=== PATIENT | female | born 1960 | race Caucasian/White ===

== ENCOUNTER → 2018-10-13 | Outpatient (CLI) | payer OTHER ==
--- NOTE | 2018-10-13 17:50 | Diagnostic Imaging Report ---
INDICATION: Routine screening. Comparison is made with prior mammograms from 10/07/2017 and 10/01/2016. 2-D and 3-D bilateral screening mammography was performed with computer-aided detection (CAD) system. FINDINGS: Both breasts are heterogeneously dense, limiting the sensitivity of mammography. No spiculated mass or malignant-appearing microcalcifications are seen. The axillae are unremarkable. IMPRESSION: No mammographic features suspicious for malignancy are identified. ACR BI-RADS Category 1: Negative. Result letter will be mailed to the patient. Note: At least 10% of breast cancer is not imaged by mammography. Dictated by: Dictated on workstation # [id number]
== END ==
LOC: RAD 15:17
PROVIDERS: ATTEND Internal Medicine
DX: Z12.31 Encounter for screening mammogram for malignant neoplasm of breast (principal)
CPT/HCPCS: 77067

== ENCOUNTER → 2019-10-12 | Outpatient (CLI) | payer OTHER ==
--- NOTE | 2019-10-12 17:49 | Diagnostic Imaging Report ---
EXAM: CERVICAL SPINE 3 VIEWS OR LESS INDICATION: Neck pain. COMPARISON: None. FINDINGS: Normal alignment. Vertebral body heights are preserved. Mild degenerative endplate changes are greatest at C4-C5. Normal prevertebral soft tissues. IMPRESSION: Mild spondylotic changes. No acute radiographic findings. Dictated by: Dictated on workstation # [id number]
== END ==
LOC: RAD 17:09
PROVIDERS: ATTEND Internal Medicine
DX: M47.812 Spondylosis without myelopathy or radiculopathy, cervical region (principal)
CPT/HCPCS: 72040

== ENCOUNTER → 2019-10-16 | Outpatient (CLI) | payer OTHER ==
--- NOTE | 2019-10-16 10:40 | Diagnostic Imaging Report ---
INDICATION: Routine screening. Comparison is made with prior mammogram from 10/13/2018 and 10/07/2017. 2-D and 3-D bilateral screening mammography was performed with CAD. Both breasts are heterogeneously dense, limiting the sensitivity of mammography. No mass or malignant-appearing microcalcifications are seen. There are benign calcifications. Axillae are unremarkable. IMPRESSION: BI-RADS Category 2 No mammographic features suspicious for malignancy are identified. ACR BI-RADS Category 2: Benign findings. Result letter will be mailed to the patient. Note: At least 10% of breast cancer is not imaged by mammography. Dictated by: Dictated on workstation # [id number]
== END ==
LOC: RAD 09:33
PROVIDERS: ATTEND Internal Medicine
DX: Z12.31 Encounter for screening mammogram for malignant neoplasm of breast (principal)
CPT/HCPCS: 77067

== ENCOUNTER → 2020-10-26 | Outpatient (CLI) | payer OTHER ==
--- NOTE | 2020-10-26 11:16 | Diagnostic Imaging Report ---
Indication: Screening. The current study was also evaluated with a Computer Aided Detection (CAD) system. 3-D Tomographic imaging was also performed. Comparison made with prior examination from 10/16/2019, 10/13/2018, 10/07/2017. FINDINGS: The thyroid tissue is heterogeneously dense bilaterally. There are benign type calcifications. There is no dominant mass, spiculated lesions or suspicious calcification identified. The skin, nipples and axilla are unremarkable. IMPRESSION: Category 2 benign ACR BI-RADS Category 2: Benign findings. Result letter will be mailed to the patient. Note: At least 10% of breast cancer is not imaged by mammography. Dictated by: Dictated on workstation # [id number]
== END ==
LOC: RAD 09:45
PROVIDERS: ATTEND Internal Medicine
DX: Z12.31 Encounter for screening mammogram for malignant neoplasm of breast (principal)
CPT/HCPCS: 77063; 77067

== ENCOUNTER → 2021-11-03 | Outpatient (CLI) | payer OTHER ==
--- NOTE | 2021-11-03 12:07 | Diagnostic Imaging Report ---
INDICATION: Routine screening. COMPARISON is made with prior mammograms from 10/26/2020 and 10/16/2019. 2-D and 3-D bilateral screening mammography was performed with CAD. Both breasts are heterogeneously dense, limiting the sensitivity of mammography. No mass or malignant-appearing microcalcifications are seen. Axillae are unremarkable. IMPRESSION: BI-RADS Category 1 No mammographic features suspicious for malignancy are identified. ACR BI-RADS Category 1: Negative. Result letter will be mailed to the patient. Note: At least 10% of breast cancer is not imaged by mammography. Dictated by: Dictated on workstation # [id number]
== END ==
LOC: RAD 11:30
PROVIDERS: ATTEND Internal Medicine
DX: Z12.31 Encounter for screening mammogram for malignant neoplasm of breast (principal)
CPT/HCPCS: 77063; 77067

== ENCOUNTER → 2022-11-09 | Outpatient (CLI) | payer OTHER ==
--- NOTE | 2022-11-09 20:44 | Diagnostic Imaging Report ---
INDICATION: Routine screening. COMPARISON: Prior mammograms from 11/03/2021 and 10/26/2020. EXAMINATION: 2D and 3D bilateral screening mammography was performed with CAD. The current study was also evaluated with a Computer Aided Detection (CAD) system. FINDINGS: Both breasts are heterogeneously dense, limiting the sensitivity of mammography. No mass or malignant-appearing microcalcifications are seen. Axillae are unremarkable. IMPRESSION: No mammographic features suspicious for malignancy are identified. ACR BI-RADS Category 1: Negative. Result letter will be mailed to the patient. Note: At least 10% of breast cancer is not imaged by mammography. Dictated by: Dictated on workstation # [id number]
== END ==
LOC: RAD 14:18
PROVIDERS: ATTEND Internal Medicine
DX: Z12.31 Encounter for screening mammogram for malignant neoplasm of breast (principal)
CPT/HCPCS: 77063; 77067

== ENCOUNTER 2023-07-31 06:59 | Outpatient (CLI) | payer OTHER ==
[~2023-07-31] VITALS: Ht 167.6 cm; Wt 75.3 kg
[2023-07-31] MEDS ORDERED: OMEG100032 PO (15:22)
[2023-07-31] MEDS ORDERED: LORA10CA PO (15:29)
[2023-07-31] MEDS ORDERED: MULT-974 PO (15:29)
[2023-07-31] MEDS ORDERED: FLUT9.9S NS (15:29)
== END 2023-07-31 15:33 | disposition home or self-care (01) ==
LOC: PREOP 06:59
PROVIDERS: ATTEND Internal Medicine
DX: Z01.818 Encounter for other preprocedural examination (principal)

== ENCOUNTER 2023-08-09 08:22 | Day surgery (SDC) | payer OTHER ==
--- NOTE | 2023-07-31 09:01 | HISTORY AND PHYSICAL ---
HISTORY OF PRESENT ILLNESS: The patient is a 63-year-old white female referred for screening colonoscopy by Dr. Timmons. She does report family history for colon cancer, her sister diagnosed in her 50s and her maternal grandmother with colon cancer, she is not sure of her grandmother's age at the time of diagnosis. Her last colonoscopy was over 5 years ago and she does not recall having any polyps or any abnormalities. PAST MEDICAL HISTORY: Noncontributory. She takes fish oil for primary prevention issues and is on no medication. No prescription medication. PAST SURGICAL HISTORY: Significant for a section and two shoulder surgeries, which did not involve the joint replacement. 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 REVIEW OF SYSTEMS: CONSTITUTIONAL: Denies night sweats, chills, fever or change in weight. GASTROINTESTINAL: Denies bright red blood per rectum, melena. Does report some stable constipation without rectal pain. PULMONARY: Denies cough, wheezing or shortness of breath. CARDIOVASCULAR: Denies chest discomfort, orthopnea, PND, pedal edema or syncope. PHYSICAL EXAMINATION: GENERAL: Reveals a pleasant white female, appears to be in no acute distress. VITAL SIGNS: Weight 165 pounds, blood pressure 130/94, reporting a white coat component. CHEST: Clear. CARDIOVASCULAR: Reveals regular rate and rhythm without murmur, S3, or S4. ABDOMEN: Soft, supple without mass, organomegaly, or tenderness. EXTREMITIES: Revealed no cyanosis, clubbing or edema. ASSESSMENT AND PLAN: The patient is being set up for screening colonoscopy on 08/09/2023. Prep instructions were given and questions were answered. She is deemed to be of higher than average risk, as her sister was diagnosed with colon cancer in her 50s and has a maternal grandmother with colon cancer as well, unknown age of diagnosis. I thank you for referral of this pleasant lady. Job ID: [id number] DocumentID: [id number] Dictated Date: 07/29/2023 17:13:21 Messenger Floorperson Date: 07/29/2023 17:38:00 Dictated By: PRADIP FRANKEL MD
[~2023-08-09] VITALS: Ht 167.6 cm; Wt 75.3 kg
[~2023-08-09 08:22] MED LIST: FLUT9.9S NS; LORA10CA PO; MULT-974 PO; OMEG100032 PO
[2023-08-09] MEDS ORDERED: LACTATED RINGERS 1,000 ML 1,000 ML IV STA (08:33)
[2023-08-09 08:54] VITALS: BP 134/72
--- NOTE | 2023-08-09 09:01 | Pre-Op Note & Conscious Sedat ---
Pre-Operative Progress Note Date H&P Reviewed: Aug 09, 2023 Time H&P Reviewed: 09:00 History & Physical: H&P Reviewed, Patient Examed, No changes noted Pre-Op Diagnosis: screening Moderate Sedation PreProcedure ASA Score 1 Airway Lungs Heart ASA score ASA 1: a normal healthy patient ASA 2: a patient with a mild systemic disease (mid diabetes, controlled hypertension, obesity ASA 3: a patient with a severe systemic disease that limits activity (angina, COPD, prior Myocardial infarction) ASA 4: a patient with an incapacitating disease that is a constant threat to life (CHF, renal failure) ASA 5: a moribund patient not expected to survive 24 hrs. (ruptured aneurysm) ASA 6: a declared brain- patient whose organs are being harvested. For emergent operations, add the letter E after the classification Mallampati Classification Grade 1 Sedation Plan Analgesia, Amnesia, Plan communicated to team members, Discussed options with patient/fam, Discussed risks with patient/fam The patient is an appropriate candidate to undergo the planned procedure, sedation, and anesthesia. The patient immediately re-assessed prior to indication. PRADIP FRANKEL MD Aug 09, 2023 09:01
[2023-08-09 10:30] VITALS: BP 105/55
--- NOTE | 2023-08-09 10:30 | Anesthesia-General Post-Op ---
MAC Patient Condition Mental Status/LOC: Same as Preop Cardiovascular: Satisfactory Nausea/Vomiting: Absent Respiratory: Satisfactory Pain: Controlled Complications: Absent Post Op Complications Complications None Follow Up Care/Instructions Patient Instructions None needed. Anesthesiology Discharge Order Discharge Order Patient is doing well, no complaints, stable vital signs, no apparent adverse anesthesia problems. No complications reported per nursing. HOSSEIN ANTONIO CRNA Aug 09, 2023 10:30
[2023-08-09 10:35] VITALS: BP 123/70
--- NOTE | 2023-08-09 10:36 | Progress Note-Post Operative ---
Post-Procedure Note Physician (s)/Production [employer]ic [employer] (s) Physician PRADIP FRANKEL MD Pre-Procedure Diagnosis Pre-Procedure Diagnosis: screening Post-Procedure Diagnosis Post-operative diagnosis: Prior to undergoing colonoscopy digital rectal evaluation was performed. Anal sphincter tone was normal and the perianal reflexes intact. No abnormalities noted on digital inspection anal canal or distal rectal vault. The colonoscope was then inserted into the rectum and under direct visualization advanced to the cecum. The cecum was notified by identification of the ileocecal valve and cecal strap. Photographic documentation obtained. Quality prep was fair. Findings there are no evidence for internal/external hemorrhoids. The rectum was unremarkable. There was a questionable sessile polyp noted in the mid sigmoid colon biopsy and ablation was performed. The remainder the sigmoid colon was unremarkable as was the descending colon splenic flexure transverse colon hepatic flexure. A 3 mm sessile polyp was noted in the proximal ascending colon that was biopsied and ablated with minimal blood loss. 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 A/P 1. 1 questionable sessile polyp was biopsied and ablated from the mid sigmoid colon if this does mill turner to be an adenoma she will need to return in 1 year for surveillance. Another diminutive polyp was removed from the proximal ascending colon. Moderate melanosis coli was noted throughout the colon with no other abnormalities. I thank you for the furl is pleasant lady sincerely Pradip Frankel MD Cc: DO JOSTIN Romeo MARK D MD Aug 09, 2023 10:36
[2023-08-09 10:40] VITALS: BP 123/70
[2023-08-09 10:58] VITALS: BP 123/70
== END 2023-08-09 11:24 | disposition home or self-care (01) ==
LOC: ENDO 08:22
PROVIDERS: ATTEND Internal Medicine
DX: Z12.11 Encounter for screening for malignant neoplasm of colon (principal); D12.2 Benign neoplasm of ascending colon; K63.5 Polyp of colon; K63.89 Other specified diseases of intestine; Z80.0 Family history of malignant neoplasm of digestive organs

== ENCOUNTER → 2023-11-11 | Outpatient (CLI) | payer OTHER ==
--- NOTE | 2023-11-11 08:58 | Diagnostic Imaging Report ---
INDICATION: Routine screening. COMPARISON is made with prior mammograms 11/09/2022 and 11/03/2021. 2-D and 3-D bilateral screening mammography was performed with CAD. Both breasts are heterogeneously dense, limiting the sensitivity of mammography. The parenchymal pattern is stable. No mass or malignant-appearing microcalcifications are identified. Axillae are unremarkable. IMPRESSION: BI-RADS Category 1 No mammographic features suspicious for malignancy are identified. ACR BI-RADS Category 1: Negative. Result letter will be mailed to the patient. Note: At least 10% of breast cancer is not imaged by mammography. Dictated by: Dictated on workstation # [id number]
== END ==
LOC: RAD 08:15
PROVIDERS: ATTEND Internal Medicine
DX: Z12.31 Encounter for screening mammogram for malignant neoplasm of breast (principal)
CPT/HCPCS: 77063; 77067